=== PATIENT | male | born 2000 | race Caucasian/White ===

== ENCOUNTER 2021-11-25 11:29 | Outpatient (CLI) | payer OTHER, SELFPAY ==
--- NOTE | 2021-11-25 11:30 | CRLHL7_ITS ---
For Patients: As a result of the Century Cures Act, medical imaging exams and procedure reports are released immediately into your electronic medical record. You may view this report before your referring provider. If you have questions, please contact your health care provider. INDICATION: left sided pain and palpable lump COMPARISON: none TECHNIQUE: Doe scale imaging was performed of the scrotum. In addition color Doppler and spectral Doppler analysis was performed of the testes. FINDINGS: The testes demonstrate normal arterial and venous blood flow on color Doppler and spectral Doppler analysis. The testes have uniform echogenicity with no evidence of a suspicious mass or area of inflammation. The right testis measures 5.0 x 2.5 x 3.1 cm in size and the left testis measures 4.6 x 2.6 x 3.4 cm. Normal right epididymis. Right epididymal head cysts are present measuring 1.6 cm and 0.6 cm. There is no evidence of a hydrocele or varicocele. IMPRESSION: Left epididymal head cysts. Normal testicles. Dictated by Zackery Bearden MD @ 11/25/2021 12:21:58 PM (Electronically Signed)
== END 2021-11-25 11:30 | disposition home or self-care (01) ==
PROVIDERS: Visit Provider Family Medicine
DX: N50.819 Testicular pain, unspecified (principal); L72.0 Epidermal cyst
CPT/HCPCS: 76870; 93976